=== PATIENT | female | born 1995 | race Caucasian/White ===

== ENCOUNTER 2018-03-30 08:09 | Emergency (ER) | payer OTHER ==
[~2018-03-30] VITALS: Ht 147.3 cm; Wt 65.8 kg
[2018-03-30 08:09] VITALS: BP_SYST 131
[2018-03-30] MEDS ORDERED: MORPHINE 4 MG/ML INJ. SYRINGE IVP ONE (08:15)
[2018-03-30] MEDS ORDERED: ONDANSETRON HCL 4 MG/2 ML VIAL IVP ONE (08:15)
[2018-03-30] MEDS ORDERED: MORPHINE 4 MG/ML INJ. SYRINGE ONE (08:36)
[2018-03-30] MEDS ORDERED: ONDANSETRON HCL 4 MG/2 ML VIAL ONE (08:36)
[2018-03-30] MEDS ORDERED: fentaNYL CITRATE/PF 100 MCG/2 ML AMP IVP ONE ×2 (08:45→09:15)
[2018-03-30] MEDS ORDERED: fentaNYL CITRATE/PF 100 MCG/2 ML AMP ONE (08:54)
[2018-03-30] MEDS ORDERED: MIDAZOLAM HCL 5 MG/5 ML VIAL IVP ONE (09:15)
[2018-03-30 10:00] VITALS: BP_SYST 119
[2018-03-30] MEDS ORDERED: KETOROLAC TROMETHAMINE 15 MG VIAL IVP ONE (10:00)
== END 2018-03-30 10:00 | disposition home or self-care (01) ==
LOC: SED 08:09
DX: S83.005A Unspecified dislocation of left patella, initial encounter (principal); W19.XXXA Unspecified fall, initial encounter; Y93.45 Activity, cheerleading; Y92.89 Other specified places as the place of occurrence of the external cause; Y99.8 Other external cause status
CPT/HCPCS: 27560; 73560; 73564; 96374; 96375; 99284; J1885; J2250; J2270; J2405; J3010